=== PATIENT | female | born 1945 | race African-American/Black ===

== ENCOUNTER 2018-04-23 12:34 | Day surgery (SDC) | payer MEDICARE, MEDICAID ==
[2018-04-23] MEDS ORDERED: Acetaminophen 325 MG TAB PO PRN (12:38)
[2018-04-23] MEDS ORDERED: diphenhydrAMINE 50 MG/ML VIAL IM PRN (12:38)
[2018-04-23] MEDS ORDERED: diphenhydrAMINE 25 MG CAP PO PRN (12:38)
[2018-04-23] MEDS ORDERED: diphenhydrAMINE 50 MG/ML VIAL IVP PRN (12:38)
[2018-04-23] MEDS ORDERED: GOLIMUMAB IVPB SCH (12:45)
[2018-04-23] MEDS ORDERED: SODIUM CHLORIDE 0.9% IVPB SCH (12:45)
[2018-04-23 13:24] VITALS: BP 122/67; TEMP 97.9
== END 2018-04-23 15:44 | disposition home or self-care (01) ==
LOC: ONC/OP 12:34
PROVIDERS: ATTEND Internal Medicine Rheumatology
DX: M05.79 Rheumatoid arthritis with rheumatoid factor of multiple sites without organ or systems involvement (principal); Z88.2 Allergy status to sulfonamides
CPT/HCPCS: 96413; J1602; J7050

== ENCOUNTER 2018-06-20 12:09 | Day surgery (SDC) | payer MEDICARE, MEDICAID ==
[~2018-06-20 12:09] MED LIST: Acetaminophen 325 MG TAB PO PRN; GOLIMUMAB IVPB SCH; SODIUM CHLORIDE 0.9% IVPB SCH; diphenhydrAMINE 25 MG CAP PO PRN; diphenhydrAMINE 50 MG/ML VIAL IM PRN; diphenhydrAMINE 50 MG/ML VIAL IVP PRN
[2018-06-20] MEDS ORDERED: Sodium Chloride 0.9% 20 ML ONE (12:28)
== END 2018-06-20 13:26 | disposition home or self-care (01) ==
LOC: ONC/OP 12:09
PROVIDERS: ATTEND Internal Medicine Rheumatology
DX: M05.79 Rheumatoid arthritis with rheumatoid factor of multiple sites without organ or systems involvement (principal); Z88.2 Allergy status to sulfonamides
CPT/HCPCS: 96413; J1602; J7050; Q0163

== ENCOUNTER 2018-08-15 11:58 | Day surgery (SDC) | payer MEDICARE, MEDICAID ==
[2018-08-15] MEDS ORDERED: Sodium Chloride 0.9% 20 ML ONE (12:31)
== END 2018-08-15 13:17 | disposition home or self-care (01) ==
LOC: ONC/OP 11:58
PROVIDERS: ATTEND Internal Medicine Rheumatology
DX: M05.79 Rheumatoid arthritis with rheumatoid factor of multiple sites without organ or systems involvement (principal); Z88.8 Allergy status to other drugs, medicaments and biological substances
CPT/HCPCS: 96413; J1602; J7050

== ENCOUNTER 2018-10-10 10:55 | Day surgery (SDC) | payer MEDICARE, MEDICAID | END 2018-10-10 13:16 | disposition home or self-care (01) | LOC: ONC/OP 10:55 | PROVIDERS: ATTEND Internal Medicine Rheumatology | DX: M06.9 Rheumatoid arthritis, unspecified (principal); Z88.2 Allergy status to sulfonamides | CPT/HCPCS: 96413; J1602; J3490 ==

== ENCOUNTER 2018-12-25 13:14 | Day surgery (SDC) | payer MEDICARE, MEDICAID ==
[2018-12-25] MEDS ORDERED: Sodium Chloride 0.9% 20 ML ONE (13:27)
== END 2018-12-25 15:08 | disposition home or self-care (01) ==
LOC: ONC/OP 13:14
PROVIDERS: ATTEND Internal Medicine Rheumatology
DX: M05.79 Rheumatoid arthritis with rheumatoid factor of multiple sites without organ or systems involvement (principal); Z88.2 Allergy status to sulfonamides
CPT/HCPCS: 96413; J1602; J3490

== ENCOUNTER 2019-03-05 11:32 | Day surgery (SDC) | payer MEDICARE, MEDICAID ==
[2019-03-05 12:41] VITALS: BP 162/77; TEMP 97.7
[2019-03-05] MEDS ORDERED: Sodium Chloride 0.9% 20 ML ONE (13:18)
== END 2019-03-05 15:13 | disposition home or self-care (01) ==
LOC: ONC/OP 11:32
PROVIDERS: ATTEND Internal Medicine Rheumatology
DX: M05.79 Rheumatoid arthritis with rheumatoid factor of multiple sites without organ or systems involvement (principal); Z88.2 Allergy status to sulfonamides
CPT/HCPCS: 96413; J1602; J3490

== ENCOUNTER 2019-08-19 12:55 | Day surgery (SDC) | payer MEDICARE, MEDICAID ==
[~2019-08-19 12:55] MED LIST changes: +Abatacept 750 MG in Sodium Chloride 0.9% 70 ML IVPB SCH; -Acetaminophen 325 MG TAB PO PRN; -GOLIMUMAB IVPB SCH; -SODIUM CHLORIDE 0.9% IVPB SCH; +Sodium Chloride 0.9% 1,000 ML IV SCH; -diphenhydrAMINE 25 MG CAP PO PRN; -diphenhydrAMINE 50 MG/ML VIAL IM PRN; -diphenhydrAMINE 50 MG/ML VIAL IVP PRN
[2019-08-19] MEDS ORDERED: Sodium Chloride 0.9% 20 ML ONE (13:11)
[2019-08-19 13:19] VITALS: BP 165/78; TEMP 98.4
== END 2019-08-19 15:43 | disposition home or self-care (01) ==
LOC: ONC/OP 12:55
PROVIDERS: ATTEND Internal Medicine Rheumatology
DX: M06.9 Rheumatoid arthritis, unspecified (principal); Z88.2 Allergy status to sulfonamides
CPT/HCPCS: 96413; J0129; J3490

== ENCOUNTER 2019-09-02 12:45 | Day surgery (SDC) | payer MEDICARE, MEDICAID ==
[2019-09-02] MEDS ORDERED: Sodium Chloride 0.9% 20 ML ONE (12:58)
[2019-09-02 13:20] VITALS: BP 172/74; TEMP 98.6
== END 2019-09-02 14:36 | disposition home or self-care (01) ==
LOC: ONC/OP 12:45
PROVIDERS: ATTEND Internal Medicine Rheumatology
DX: M05.79 Rheumatoid arthritis with rheumatoid factor of multiple sites without organ or systems involvement (principal); Z88.8 Allergy status to other drugs, medicaments and biological substances
CPT/HCPCS: 96413; J0129; J3490

== ENCOUNTER 2019-09-16 13:08 | Day surgery (SDC) | payer MEDICARE, MEDICAID ==
[~2019-09-16 13:08] MED LIST changes: +Acetaminophen 500 MG TAB PO PRN; +diphenhydrAMINE 25 MG CAP PO PRN; +diphenhydrAMINE 50 MG/ML VIAL IVP PRN
[2019-09-16] MEDS ORDERED: Sodium Chloride 0.9% 20 ML ONE (13:18)
[2019-09-16 13:42] VITALS: BP 138/67; TEMP 98.2
== END 2019-09-16 15:06 | disposition home or self-care (01) ==
LOC: ONC/OP 13:08
PROVIDERS: ATTEND Internal Medicine Rheumatology
DX: M05.79 Rheumatoid arthritis with rheumatoid factor of multiple sites without organ or systems involvement (principal); Z88.2 Allergy status to sulfonamides
CPT/HCPCS: 96413; J0129; J3490

== ENCOUNTER 2019-10-14 13:07 | Day surgery (SDC) | payer MEDICARE, MEDICAID ==
[2019-10-14] MEDS ORDERED: Abatacept 750 MG in Sodium Chloride 0.9% 70 ML IVPB SCH (14:15)
[2019-10-14 14:54] LABS: Hemoglobin 10.6 g/dL (12.0-16.0); Mean Corpuscular HGB CONC 32.3 g/dL (32.0-36.0); Mean Corpuscular Hemoglobin 30.6 pg (27.0-31.0); Mean Corpuscular Volume 94.6 fL (78.0-98.0); Mean Platelet Volume 9.2 fL (7.4-10.4); Platelet Count 215 thou/uL (130-400); RBC Distribution Width 13.3 % (11.5-14.5); Red Blood Cell (RBC) Count 3.47 mill/uL (4.20-5.40)
[2019-10-14 14:59] LABS: ALT (SGPT) 15 U/L (8-55); AST (SGOT) 38 U/L (5-34); Albumin 4.2 g/dL (3.4-4.8); Alkaline Phosphatase 85 U/L (40-110); Anion Gap 14 mmol/L (10-20); BUN (Urea Nitrogen) 8 mg/dL (9.8-20.1); Bilirubin, Total 0.2 mg/dL (0.2-1.2); Calc. Creatinine Clearance 66 mL/min (70-130); Calcium 8.7 mg/dL (7.8-10.44); Carbon Dioxide 20 mmol/L (23-31); Chloride 105 mmol/L (98-107); Estimated GFR-MDRD 71; Globulin 4.2 g/dL (2.4-3.5); Glucose 100 mg/dL (83-110); Potassium 4.2 mmol/L (3.5-5.1); Protein, Total 8.4 g/dL (6.0-8.3); Sodium 135 mmol/L (136-145)
[2019-10-14] MEDS ORDERED: Sodium Chloride 0.9% 20 ML ONE (15:12)
[2019-10-14 15:18] LABS: White Blood Cell (WBC) Count 3.2 thou/uL (4.8-10.8)
[2019-10-14 15:19] LABS: Band 2 % (5-11); Eosinophils 3 % (0-10); Lymphocytes 29 % (21-51); MDiff Complete? YES; Monocytes 14 % (0-10); Neutrophil 51 % (42-75); Ovalocytes SLIGHT = 2-5 cells (100X) (0-1/hpf); Platelet Morphology Comment Appears Adequate; Polychromasia SLIGHT = 2-3 cells (100X) (0-2/hpf)
[2019-10-14 15:22] VITALS: BP 138/65; TEMP 98.6
== END 2019-10-14 15:57 | disposition home or self-care (01) ==
LOC: ONC/OP 13:07
PROVIDERS: ATTEND Internal Medicine Rheumatology
DX: M05.79 Rheumatoid arthritis with rheumatoid factor of multiple sites without organ or systems involvement (principal); Z88.8 Allergy status to other drugs, medicaments and biological substances
CPT/HCPCS: 80053; 82306; 83970; 85025; 85652; 86140; 96413; J0129; J3490

== ENCOUNTER 2019-11-11 12:29 | Day surgery (SDC) | payer MEDICARE, MEDICAID ==
[2019-11-11] MEDS ORDERED: Abatacept 750 MG in Sodium Chloride 0.9% 70 ML IVPB SCH (12:45)
== END 2019-11-11 14:05 | disposition home or self-care (01) ==
LOC: ONC/OP 12:29
PROVIDERS: ATTEND Internal Medicine Rheumatology
DX: M05.79 Rheumatoid arthritis with rheumatoid factor of multiple sites without organ or systems involvement (principal); Z88.8 Allergy status to other drugs, medicaments and biological substances
CPT/HCPCS: 96413; J0129; J3490

== ENCOUNTER 2019-12-09 12:20 | Day surgery (SDC) | payer MEDICARE, MEDICAID ==
[~2019-12-09 12:20] MED LIST changes: -Sodium Chloride 0.9% 1,000 ML IV SCH
[2019-12-09 12:35] VITALS: BP 184/79; TEMP 98.7
== END 2019-12-09 14:13 | disposition home or self-care (01) ==
LOC: ONC/OP 12:20
PROVIDERS: ATTEND Internal Medicine Rheumatology
DX: M05.79 Rheumatoid arthritis with rheumatoid factor of multiple sites without organ or systems involvement (principal); Z88.8 Allergy status to other drugs, medicaments and biological substances
CPT/HCPCS: 96413; J0129; J3490

== ENCOUNTER → 2020-01-06 | Day surgery (SDC) | payer MEDICARE, MEDICAID ==
[~2020-01-06] MED LIST changes: -Acetaminophen 500 MG TAB PO PRN; +Sodium Chloride 0.9% 1,000 ML IV SCH; -diphenhydrAMINE 25 MG CAP PO PRN; -diphenhydrAMINE 50 MG/ML VIAL IVP PRN
[2020-01-06 14:12] LABS: Free T4 (Free Thyroxine) 1.01 ng/dL (0.70-1.48); Thyroid Stimulating Hormone 1.8469 uIU/mL (0.35-4.94)
== END ==
LOC: ONC/OP 12:54
PROVIDERS: ATTEND Internal Medicine Rheumatology
DX: M05.79 Rheumatoid arthritis with rheumatoid factor of multiple sites without organ or systems involvement (principal); Z88.2 Allergy status to sulfonamides
CPT/HCPCS: 84439; 84443; 96413; J0129; J3490

== ENCOUNTER 2020-03-29 12:35 | Day surgery (SDC) | payer MEDICARE, MEDICAID ==
[2020-03-29 13:00] VITALS: BP 136/81; TEMP 98.9
== END 2020-03-29 14:55 | disposition home or self-care (01) ==
LOC: ONC/OP 12:35
PROVIDERS: ATTEND Internal Medicine Rheumatology
DX: M05.79 Rheumatoid arthritis with rheumatoid factor of multiple sites without organ or systems involvement (principal); Z88.2 Allergy status to sulfonamides
CPT/HCPCS: 96413; J0129; J3490

== ENCOUNTER 2020-04-26 12:55 | Day surgery (SDC) | payer MEDICARE, MEDICAID ==
[2020-04-26] MEDS ORDERED: Sodium Chloride 0.9% 20 ML ONE ×2 (13:01→13:04)
[2020-04-26 14:02] VITALS: BP 141/75; TEMP 98
== END 2020-04-26 14:24 | disposition home or self-care (01) ==
LOC: ONC/OP 12:55
PROVIDERS: ATTEND Internal Medicine Rheumatology
DX: M05.79 Rheumatoid arthritis with rheumatoid factor of multiple sites without organ or systems involvement (principal); Z88.8 Allergy status to other drugs, medicaments and biological substances
CPT/HCPCS: 96413; J0129; J3490

== ENCOUNTER 2020-05-24 12:32 | Day surgery (SDC) | payer MEDICARE, MEDICAID ==
[2020-05-24 12:42] VITALS: BP 146/73
== END 2020-05-24 13:36 | disposition home or self-care (01) ==
LOC: ONC/OP 12:32
PROVIDERS: ATTEND Internal Medicine Rheumatology
DX: M05.79 Rheumatoid arthritis with rheumatoid factor of multiple sites without organ or systems involvement (principal); Z88.8 Allergy status to other drugs, medicaments and biological substances
CPT/HCPCS: 96413; J0129; J3490

== ENCOUNTER 2020-06-21 13:48 | Day surgery (SDC) | payer MEDICARE, MEDICAID ==
[2020-06-21 14:51] VITALS: BP 140/74; TEMP 98
[2020-06-24 13:39] LABS: QuantiFERON-TB Gold Plus Negative (Negative)
== END 2020-06-21 15:18 | disposition home or self-care (01) ==
LOC: ONC/OP 13:48
PROVIDERS: ATTEND Internal Medicine Rheumatology
DX: M05.79 Rheumatoid arthritis with rheumatoid factor of multiple sites without organ or systems involvement (principal); Z88.8 Allergy status to other drugs, medicaments and biological substances
CPT/HCPCS: 86480; 96413; J0129; J3490

== ENCOUNTER 2020-07-19 12:29 | Day surgery (SDC) | payer MEDICARE, MEDICAID ==
[~2020-07-19 12:29] MED LIST changes: +Acetaminophen 500 MG TAB PO PRN; -Sodium Chloride 0.9% 1,000 ML IV SCH; +diphenhydrAMINE 25 MG CAP PO PRN; +diphenhydrAMINE 50 MG/ML VIAL IVP PRN
[2020-07-19] MEDS ORDERED: Sodium Chloride 0.9% 20 ML ONE (12:39)
== END 2020-07-19 14:20 | disposition home or self-care (01) ==
LOC: ONC/OP 12:29
PROVIDERS: ATTEND Internal Medicine Rheumatology
DX: M05.79 Rheumatoid arthritis with rheumatoid factor of multiple sites without organ or systems involvement (principal); Z88.8 Allergy status to other drugs, medicaments and biological substances
CPT/HCPCS: 96413; J0129; J3490

== ENCOUNTER 2020-08-16 12:42 | Day surgery (SDC) | payer MEDICARE, MEDICAID ==
[~2020-08-16 12:42] MED LIST changes: -Acetaminophen 500 MG TAB PO PRN; +Sodium Chloride 0.9% 1,000 ML IV SCH; -diphenhydrAMINE 25 MG CAP PO PRN; -diphenhydrAMINE 50 MG/ML VIAL IVP PRN
[2020-08-16] MEDS ORDERED: Sodium Chloride 0.9% 20 ML ONE (12:53)
== END 2020-08-16 13:34 | disposition home or self-care (01) ==
LOC: ONC/OP 12:42
PROVIDERS: ATTEND Internal Medicine Rheumatology
DX: M06.9 Rheumatoid arthritis, unspecified (principal); Z88.2 Allergy status to sulfonamides
CPT/HCPCS: 96413; J0129; J3490

== ENCOUNTER 2020-09-13 12:18 | Day surgery (SDC) | payer MEDICARE, MEDICAID ==
[~2020-09-13 12:18] MED LIST changes: +Acetaminophen 500 MG TAB PO PRN; -Sodium Chloride 0.9% 1,000 ML IV SCH; +diphenhydrAMINE 25 MG CAP PO PRN; +diphenhydrAMINE 50 MG/ML VIAL IVP PRN
[2020-09-13 12:34] VITALS: BP 148/94; TEMP 98.2
== END 2020-09-13 13:28 | disposition home or self-care (01) ==
LOC: ONC/OP 12:18
PROVIDERS: ATTEND Internal Medicine Rheumatology
DX: M06.9 Rheumatoid arthritis, unspecified (principal); Z88.2 Allergy status to sulfonamides
CPT/HCPCS: 96413; J0129; J3490

== ENCOUNTER 2020-10-11 12:08 | Day surgery (SDC) | payer MEDICARE, MEDICAID ==
[~2020-10-11 12:08] MED LIST changes: -Acetaminophen 500 MG TAB PO PRN; +Sodium Chloride 0.9% 1,000 ML IV SCH; -diphenhydrAMINE 25 MG CAP PO PRN; -diphenhydrAMINE 50 MG/ML VIAL IVP PRN
[2020-10-11] MEDS ORDERED: Sodium Chloride 0.9% 40 ML ONE (12:29)
[2020-10-11 13:44] LABS: Hemoglobin 11.3 g/dL (12.0-16.0); Mean Corpuscular HGB CONC 33.5 g/dL (32.0-36.0); Mean Corpuscular Hemoglobin 31.1 pg (27.0-31.0); Mean Corpuscular Volume 92.8 fL (78.0-98.0); Mean Platelet Volume 8.9 fL (7.4-10.4); Platelet Count 188 thou/uL (130-400); RBC Distribution Width 11.7 % (11.5-14.5); Red Blood Cell (RBC) Count 3.64 mill/uL (4.20-5.40); White Blood Cell (WBC) Count 3.2 thou/uL (4.8-10.8)
[2020-10-11 14:03] LABS: ALT (SGPT) 16 U/L (8-55); AST (SGOT) 29 U/L (5-34); Albumin 4.4 g/dL (3.4-4.8); Alkaline Phosphatase 79 U/L (40-110); Anion Gap 18 mmol/L (10-20); BUN (Urea Nitrogen) 17 mg/dL (9.8-20.1); Bilirubin, Total 0.2 mg/dL (0.2-1.2); CRP (Inflammatory) 0.74 mg/dL (= or < 0.5); Calc. Creatinine Clearance 50 mL/min (70-130); Calcium 8.8 mg/dL (7.8-10.44); Carbon Dioxide 19 mmol/L (23-31); Chloride 103 mmol/L (98-107); Globulin 3.5 g/dL (2.4-3.5); Glucose 80 mg/dL (83-110); Potassium 4.6 mmol/L (3.5-5.1); Protein, Total 7.9 g/dL (5.8-8.1); Sodium 135 mmol/L (136-145)
[2020-10-11 14:19] LABS: Eosinophils 7 % (0-10); Lymphocytes 51 % (21-51); MDiff Complete? YES; Monocytes 18 % (0-10); Neutrophil 24 % (42-75); Ovalocytes SLIGHT = 2-5 cells (100X) (0-1/hpf); Platelet Morphology Comment Appears Adequate; Polychromasia SLIGHT = 2-3 cells (100X) (0-2/hpf)
== END 2020-10-11 14:06 | disposition home or self-care (01) ==
LOC: ONC/OP 12:08
PROVIDERS: ATTEND Internal Medicine Rheumatology
DX: M06.9 Rheumatoid arthritis, unspecified (principal); Z88.2 Allergy status to sulfonamides
CPT/HCPCS: 80053; 85025; 85652; 86140; 96413; J0129; J3490

== ENCOUNTER → 2020-11-08 | Day surgery (SDC) | payer MEDICARE, MEDICAID ==
[2020-11-08 14:29] VITALS: BP 132/68; TEMP 98.1
== END ==
LOC: ONC/OP 14:11
PROVIDERS: ATTEND Internal Medicine Rheumatology
DX: M06.9 Rheumatoid arthritis, unspecified (principal); Z88.2 Allergy status to sulfonamides
CPT/HCPCS: 96413; J0129; J3490

== ENCOUNTER → 2021-04-13 | Day surgery (SDC) | payer MEDICARE, MEDICAID ==
[~2021-04-13] MED LIST changes: -Sodium Chloride 0.9% 1,000 ML IV SCH; +Sodium Chloride 0.9% 10 ML ONE
[2021-04-13 13:23] VITALS: BP 145/88; TEMP 98.7
[2021-04-13 13:57] LABS: ALT (SGPT) 10 U/L (8-55); AST (SGOT) 21 U/L (5-34); Albumin 4.1 g/dL (3.4-4.8); Alkaline Phosphatase 77 U/L (40-110); Anion Gap 12 mmol/L (10-20); BUN (Urea Nitrogen) 13 mg/dL (9.8-20.1); Bilirubin, Total 0.2 mg/dL (0.2-1.2); CRP (Inflammatory) 1.17 mg/dL (= or < 0.5); Calc. Creatinine Clearance 0 mL/min (70-130); Calcium 8.9 mg/dL (7.8-10.44); Carbon Dioxide 23 mmol/L (23-31); Chloride 104 mmol/L (98-107); Globulin 3.4 g/dL (2.4-3.5); Glucose 92 mg/dL (83-110); Potassium 4.2 mmol/L (3.5-5.1); Protein, Total 7.5 g/dL (5.8-8.1); Sodium 135 mmol/L (136-145)
[2021-04-13 14:17] LABS: Band 1 % (5-11); Eosinophils 8 % (0-10); Hemoglobin 11.1 g/dL (12.0-16.0); Lymphocytes 44 % (21-51); MDiff Complete? YES; Mean Corpuscular HGB CONC 33.3 g/dL (32.0-36.0); Mean Corpuscular Hemoglobin 31.3 pg (27.0-31.0); Mean Corpuscular Volume 93.8 fL (78.0-98.0); Monocytes 18 % (0-10); Neutrophil 28 % (42-75); Platelet Count 228 thou/uL (130-400); Platelet Morphology Comment Appears Adequate; Polychromasia SLIGHT = 2-3 cells (100X) (0-2/hpf); RBC Distribution Width 11.7 % (11.5-14.5); Red Blood Cell (RBC) Count 3.56 mill/uL (4.20-5.40); White Blood Cell (WBC) Count 2.8 thou/uL (4.8-10.8)
== END ==
LOC: ONC/OP 12:37
PROVIDERS: ATTEND Internal Medicine Rheumatology
DX: M05.79 Rheumatoid arthritis with rheumatoid factor of multiple sites without organ or systems involvement (principal); Z88.2 Allergy status to sulfonamides
CPT/HCPCS: 80053; 85025; 85652; 86140; 96413; J0129; J3490

== ENCOUNTER 2021-05-26 13:00 | Day surgery (SDC) | payer MEDICARE, MEDICAID ==
[~2021-05-26 13:00] MED LIST changes: +Sodium Chloride 0.9% 1,000 ML IV SCH; -Sodium Chloride 0.9% 10 ML ONE
[2021-05-26] MEDS ORDERED: Sodium Chloride 0.9% 10 ML ONE (13:10)
[2021-05-26 14:29] VITALS: BP 141/83; TEMP 98.1
== END 2021-05-26 14:32 | disposition home or self-care (01) ==
LOC: ONC/OP 13:00
PROVIDERS: ATTEND Internal Medicine Rheumatology
DX: M06.9 Rheumatoid arthritis, unspecified (principal); Z88.6 Allergy status to analgesic agent
CPT/HCPCS: 96413; J0129; J3490

== ENCOUNTER 2021-06-23 12:44 | Day surgery (SDC) | payer MEDICARE, MEDICAID ==
[~2021-06-23 12:44] MED LIST changes: -Sodium Chloride 0.9% 1,000 ML IV SCH
[2021-06-23 13:31] LABS: #Eosinphils 0.2 thou/uL (0.0-0.7); #Lymphocytes 1.6 thou/uL (1.20-3.40); #Monocytes 0.6 thou/uL (0.11-0.59); #Neutrophils 2.4 thou/uL (1.40-6.50); %Basophils 0.4 % (0.0-1.0); %Eosinophils 5.1 % (0.0-10.0); %Lymphocytes 32.8 % (21.0-51.0); %Monocytes 11.9 % (0.0-10.0); %Neutrophils 49.7 % (42.0-75.0); Hemoglobin 11.4 g/dL (12.0-16.0); Mean Corpuscular HGB CONC 32.5 g/dL (32.0-36.0); Mean Corpuscular Hemoglobin 30.6 pg (27.0-31.0); Mean Corpuscular Volume 94.2 fL (78.0-98.0); Mean Platelet Volume 8.1 fL (7.4-10.4); Platelet Count 206 thou/uL (130-400); RBC Distribution Width 11.7 % (11.5-14.5); Red Blood Cell (RBC) Count 3.72 mill/uL (4.20-5.40); White Blood Cell (WBC) Count 4.8 thou/uL (4.8-10.8)
[2021-06-23 13:43] VITALS: BP 147/85; TEMP 98.2
[2021-06-23 13:59] LABS: ALT (SGPT) 11 U/L (8-55); AST (SGOT) 31 U/L (5-34); Albumin 4.2 g/dL (3.4-4.8); Alkaline Phosphatase 66 U/L (40-110); Anion Gap 6 mmol/L (10-20); BUN (Urea Nitrogen) 16 mg/dL (9.8-20.1); Bilirubin, Total 0.2 mg/dL (0.2-1.2); CRP (Inflammatory) 1.02 mg/dL (= or < 0.5); Calc. Creatinine Clearance 0 mL/min (70-130); Calcium 9.1 mg/dL (7.8-10.44); Carbon Dioxide 30 mmol/L (23-31); Chloride 104 mmol/L (98-107); Globulin 4.2 g/dL (2.4-3.5); Glucose 91 mg/dL (83-110); Protein, Total 8.4 g/dL (5.8-8.1); Sodium 136 mmol/L (136-145)
== END 2021-06-23 14:53 | disposition home or self-care (01) ==
LOC: ONC/OP 12:44
PROVIDERS: ATTEND Internal Medicine Rheumatology
DX: M05.79 Rheumatoid arthritis with rheumatoid factor of multiple sites without organ or systems involvement (principal); Z88.2 Allergy status to sulfonamides
CPT/HCPCS: 80053; 85025; 85652; 86140; 96413; J0129; J3490

== ENCOUNTER 2021-08-24 13:10 | Day surgery (SDC) | payer MEDICARE, MEDICAID ==
[~2021-08-24 13:10] MED LIST changes: +Sodium Chloride 0.9% 1,000 ML IV SCH
[2021-08-24 13:33] VITALS: BP 132/70; TEMP 98.2
== END 2021-08-24 14:38 | disposition home or self-care (01) ==
LOC: ONC/OP 13:10
PROVIDERS: ATTEND Internal Medicine Rheumatology
DX: M06.9 Rheumatoid arthritis, unspecified (principal); Z88.6 Allergy status to analgesic agent
CPT/HCPCS: 96413; J0129; J3490

== ENCOUNTER 2021-09-21 12:20 | Day surgery (SDC) | payer MEDICARE, MEDICAID ==
[2021-09-21 12:55] VITALS: BP 184/82
[2021-09-21 13:06] LABS: #Eosinphils 0.3 thou/uL (0.0-0.7); #Lymphocytes 1.4 thou/uL (1.20-3.40); #Monocytes 0.5 thou/uL (0.11-0.59); #Neutrophils 1.5 thou/uL (1.40-6.50); %Basophils 1.2 % (0.0-1.0); %Eosinophils 7.1 % (0.0-10.0); %Lymphocytes 37.8 % (21.0-51.0); %Monocytes 14.4 % (0.0-10.0); %Neutrophils 39.5 % (42.0-75.0); Hemoglobin 11.2 g/dL (12.0-16.0); Mean Corpuscular HGB CONC 31.7 g/dL (32.0-36.0); Mean Corpuscular Volume 94.7 fL (78.0-98.0); Mean Platelet Volume 8.2 fL (7.4-10.4); Platelet Count 252 thou/uL (130-400); RBC Distribution Width 11.9 % (11.5-14.5); Red Blood Cell (RBC) Count 3.74 mill/uL (4.20-5.40); White Blood Cell (WBC) Count 3.7 thou/uL (4.8-10.8)
[2021-09-21 13:32] LABS: ALT (SGPT) 14 U/L (8-55); AST (SGOT) 28 U/L (5-34); Albumin 4.4 g/dL (3.4-4.8); Alkaline Phosphatase 68 U/L (40-110); Anion Gap 16 mmol/L (10-20); BUN (Urea Nitrogen) 16 mg/dL (9.8-20.1); Bilirubin, Total 0.3 mg/dL (0.2-1.2); CRP (Inflammatory) Less than 0.50 mg/dL (= or < 0.5); Calc. Creatinine Clearance 0 mL/min (70-130); Calcium 9.5 mg/dL (7.8-10.44); Carbon Dioxide 20 mmol/L (23-31); Chloride 104 mmol/L (98-107); Globulin 3.8 g/dL (2.4-3.5); Glucose 92 mg/dL (83-110); Potassium 3.8 mmol/L (3.5-5.1); Protein, Total 8.2 g/dL (5.8-8.1); Sodium 136 mmol/L (136-145)
== END 2021-09-21 13:22 | disposition home or self-care (01) ==
LOC: ONC/OP 12:20
PROVIDERS: ATTEND Internal Medicine Rheumatology
DX: M06.9 Rheumatoid arthritis, unspecified (principal); Z88.2 Allergy status to sulfonamides
CPT/HCPCS: 80053; 85025; 85652; 86140; 96413; J0129; J3490

== ENCOUNTER 2021-10-19 12:32 | Day surgery (SDC) | payer MEDICARE, MEDICAID ==
[2021-10-19 12:49] VITALS: BP 118/64
== END 2021-10-19 13:27 | disposition home or self-care (01) ==
LOC: ONC/OP 12:32
PROVIDERS: ATTEND Internal Medicine Rheumatology
DX: M06.9 Rheumatoid arthritis, unspecified (principal); Z88.2 Allergy status to sulfonamides
CPT/HCPCS: 96413; J0129; J3490

== ENCOUNTER 2021-11-16 12:16 | Day surgery (SDC) | payer MEDICARE, MEDICAID ==
[2021-11-16 13:00] VITALS: BP 190/79; TEMP 98.3
== END 2021-11-16 13:29 | disposition home or self-care (01) ==
LOC: ONC/OP 12:16
PROVIDERS: ATTEND Internal Medicine Rheumatology
DX: M06.9 Rheumatoid arthritis, unspecified (principal); Z88.2 Allergy status to sulfonamides
CPT/HCPCS: 96365; J0129; J3490

== ENCOUNTER 2021-12-19 11:57 | Day surgery (SDC) | payer MEDICARE, MEDICAID ==
[2021-12-19] MEDS ORDERED: Abatacept 750 MG in Sodium Chloride 0.9% 70 ML IVPB SCH (12:30)
[2021-12-19] MEDS ORDERED: Sodium Chloride 0.9% 1,000 ML IV SCH (12:30)
[2021-12-19 12:49] LABS: #Eosinphils 0.2 thou/uL (0.0-0.7); #Lymphocytes 1.5 thou/uL (1.20-3.40); #Monocytes 0.6 thou/uL (0.11-0.59); %Basophils 0.8 % (0.0-1.0); %Eosinophils 5.1 % (0.0-10.0); %Lymphocytes 34.6 % (21.0-51.0); %Monocytes 12.8 % (0.0-10.0); %Neutrophils 46.7 % (42.0-75.0); Mean Corpuscular HGB CONC 32.2 g/dL (32.0-36.0); Mean Corpuscular Hemoglobin 30.1 pg (27.0-31.0); Mean Corpuscular Volume 93.6 fL (78.0-98.0); Mean Platelet Volume 8.3 fL (7.4-10.4); Platelet Count 231 thou/uL (130-400); RBC Distribution Width 12.1 % (11.5-14.5); Red Blood Cell (RBC) Count 3.64 mill/uL (4.20-5.40); White Blood Cell (WBC) Count 4.3 thou/uL (4.8-10.8)
[2021-12-19 13:14] VITALS: BP 161/80; TEMP 98.1
[2021-12-19 13:18] LABS: ALT (SGPT) 10 U/L (8-55); AST (SGOT) 21 U/L (5-34); Albumin 4.3 g/dL (3.4-4.8); Alkaline Phosphatase 78 U/L (40-110); Anion Gap 13 mmol/L (10-20); BUN (Urea Nitrogen) 13 mg/dL (9.8-20.1); Bilirubin, Total 0.2 mg/dL (0.2-1.2); CRP (Inflammatory) 1.25 mg/dL (= or < 0.5); Calc. Creatinine Clearance 0 mL/min (70-130); Calcium 9.2 mg/dL (7.8-10.44); Carbon Dioxide 23 mmol/L (23-31); Chloride 102 mmol/L (98-107); Estimated GFR 64; Globulin 3.8 g/dL (2.4-3.5); Glucose 90 mg/dL (83-110); Potassium 3.6 mmol/L (3.5-5.1); Protein, Total 8.1 g/dL (5.8-8.1); Sodium 134 mmol/L (136-145)
== END 2021-12-19 15:11 | disposition home or self-care (01) ==
LOC: ONC/OP 11:57
PROVIDERS: ATTEND Internal Medicine Rheumatology
DX: M06.9 Rheumatoid arthritis, unspecified (principal); Z88.2 Allergy status to sulfonamides
CPT/HCPCS: 80053; 85025; 85652; 86140; 96413; J0129; J3490

== ENCOUNTER 2022-01-23 12:26 | Day surgery (SDC) | payer MEDICARE, MEDICAID ==
[2022-01-23 13:19] VITALS: BP 137/72; TEMP 98.5
== END 2022-01-23 14:22 | disposition home or self-care (01) ==
LOC: ONC/OP 12:26
PROVIDERS: ATTEND Internal Medicine Rheumatology
DX: M06.9 Rheumatoid arthritis, unspecified (principal); Z88.2 Allergy status to sulfonamides
CPT/HCPCS: 96413; J0129; J3490

== ENCOUNTER 2022-02-20 13:07 | Day surgery (SDC) | payer MEDICARE, MEDICAID | END 2022-02-20 16:52 | disposition home or self-care (01) | LOC: ONC/OP 13:07 | PROVIDERS: ATTEND Internal Medicine Rheumatology | DX: M06.9 Rheumatoid arthritis, unspecified (principal); Z88.2 Allergy status to sulfonamides | CPT/HCPCS: J0129; J3490 ==

== ENCOUNTER 2022-02-23 12:41 | Day surgery (SDC) | payer MEDICARE, MEDICAID ==
[2022-02-23] MEDS ORDERED: Sodium Chloride 0.9% 1,000 ML IV SCH (13:00)
[2022-02-23] MEDS ORDERED: Abatacept 750 MG in Sodium Chloride 0.9% 70 ML IVPB SCH (13:00)
[2022-02-23 14:13] VITALS: BP 143/70; TEMP 98.3
== END 2022-02-23 16:03 | disposition home or self-care (01) ==
LOC: ONC/OP 12:41
PROVIDERS: ATTEND Internal Medicine Rheumatology
DX: M06.9 Rheumatoid arthritis, unspecified (principal); Z88.2 Allergy status to sulfonamides
CPT/HCPCS: 96413; J0129; J3490